=== PATIENT | female | born 1960 | race Asian ===

== ENCOUNTER → 2017-06-23 | Outpatient (CLI) | payer BC | END | disposition home or self-care (01) | LOC: US 07:23 | DX: K76.0 Fatty (change of) liver, not elsewhere classified (principal); N20.0 Calculus of kidney | CPT/HCPCS: 76700 ==

== ENCOUNTER → 2018-10-25 | Outpatient (CLI) | payer BC | END | disposition home or self-care (01) | LOC: MRI 12:00 | DX: S86.811A Strain of other muscle(s) and tendon(s) at lower leg level, right leg, initial encounter (principal); M94.261 Chondromalacia, right knee; M25.461 Effusion, right knee; X58.XXXA Exposure to other specified factors, initial encounter; Y93.89 Activity, other specified; Y92.89 Other specified places as the place of occurrence of the external cause; Y99.8 Other external cause status | CPT/HCPCS: 73721 ==

== ENCOUNTER → 2019-09-20 | Outpatient (CLI) | payer BC | END | disposition home or self-care (01) | LOC: RAD 16:13 | PROVIDERS: ATTEND Radiology Diagnostic Radiology | DX: I10 Essential (primary) hypertension (principal); E11.9 Type 2 diabetes mellitus without complications | CPT/HCPCS: 71046 ==

== ENCOUNTER → 2020-04-13 | Outpatient (CLI) | payer BC ==
[2020-04-13 08:01] LABS: BASOPHILS % 0.6 % (0.0-2.0); EOSINOPHILS % 2.2 % (0.0-5.0); HEMOGLOBIN. 13.1 g/dL (12.0-16.0); LYMPHOCYTES % 22.6 % (20.0-50.0); MEAN CORPUSCULAR HEMOGLOBIN 30.3 pg (28.0-32.0); MEAN PLATELET VOLUME 7.8 fl (7.4-10.4); MONOCYTES % 5.9 % (2.0-8.0); NEUTROPHILS % 68.7 % (40.0-76.0); PLATELET 254 x1000/uL (130-400); RED BLOOD CELL COUNT 4.33 mill/uL (4.2-5.4); RED CELL DISTRIBUTION WIDTH 13.1 % (11.6-14.6)
[2020-04-13 08:34] LABS: CHLORIDE 104 mEq/L (98-107)
[2020-04-13 08:40] LABS: LDL CHOLESTEROL 210 mg/dL (5-100)
[2020-04-13 08:41] LABS: HDL CHOLESTEROL 70 mg/dL (40-59)
[2020-04-13 08:42] LABS: T4 FREE 0.82 ng/dL (0.76-1.46)
== END | disposition home or self-care (01) ==
LOC: LAB 07:26
DX: E11.9 Type 2 diabetes mellitus without complications (principal); I10 Essential (primary) hypertension; E03.9 Hypothyroidism, unspecified; N28.9 Disorder of kidney and ureter, unspecified
CPT/HCPCS: 36415; 80053; 80061; 83036; 84439; 84443; 85025

== ENCOUNTER → 2020-05-21 | Outpatient (CLI) | payer BC ==
[2020-05-21 13:02] LABS: CLARITY URINE CLEAR (CLEAR); COLOR URINE YELLOW (YELLOW); KETONES URINE NEGATIVE (NEGATIVE); LEUKOCYTE ESTERASE URINE NEGATIVE (NEGATIVE); NITRITE URINE NEGATIVE (NEGATIVE); OCCULT BLOOD URINE NEGATIVE (NEGATIVE); PROTEIN URINE 2+ (NEGATIVE); SPECIFIC GRAVITY URINE 1.016 (1.005-1.030); UROBILINOGEN URINE 0.2 E.U./dL (0.2-1.0)
[2020-05-21 13:09] LABS: BASOPHILS % 0.8 % (0.0-2.0); EOSINOPHILS % 1.7 % (0.0-5.0); HEMATOCRIT. 40.1 % (36.0-48.0); HEMOGLOBIN. 13.4 g/dL (12.0-16.0); MEAN PLATELET VOLUME 8.5 fl (7.4-10.4); MONOCYTES % 5.1 % (2.0-8.0); NEUTROPHILS % 66.4 % (40.0-76.0); PLATELET 256 x1000/uL (130-400); RED BLOOD CELL COUNT 4.46 mill/uL (4.2-5.4); RED CELL DISTRIBUTION WIDTH 13.2 % (11.6-14.6)
[2020-05-21 13:20] LABS: CHLORIDE 108 mEq/L (98-107)
[2020-05-21 13:27] LABS: LDL CHOLESTEROL 162 mg/dL (5-100)
[2020-05-21 13:28] LABS: HDL CHOLESTEROL 71 mg/dL (40-59)
== END | disposition home or self-care (01) ==
LOC: LAB 12:29
PROVIDERS: ATTEND Family Medicine
DX: I10 Essential (primary) hypertension (principal); E11.9 Type 2 diabetes mellitus without complications
CPT/HCPCS: 36415; 80053; 80061; 81003; 82248; 83036; 85025

== ENCOUNTER → 2020-07-07 | Outpatient (CLI) | payer BC ==
[2020-07-07 09:56] LABS: CLARITY URINE CLEAR (CLEAR); COLOR URINE YELLOW (YELLOW); KETONES URINE NEGATIVE (NEGATIVE); LEUKOCYTE ESTERASE URINE TRACE (NEGATIVE); NITRITE URINE NEGATIVE (NEGATIVE); OCCULT BLOOD URINE NEGATIVE (NEGATIVE); PROTEIN URINE 2+ (NEGATIVE); SPECIFIC GRAVITY URINE 1.017 (1.005-1.030); UROBILINOGEN URINE 0.2 E.U./dL (0.2-1.0)
[2020-07-07 09:56] LABS: BASOPHILS % 0.7 % (0.0-2.0); EOSINOPHILS % 1.8 % (0.0-5.0); HEMATOCRIT. 40.3 % (36.0-48.0); HEMOGLOBIN. 13.3 g/dL (12.0-16.0); LYMPHOCYTES % 26.2 % (20.0-50.0); MEAN CORPUSCULAR HEMOGLOBIN 29.6 pg (28.0-32.0); MEAN CORPUSCULAR VOLUME 89.8 fL (81.0-99.0); MEAN PLATELET VOLUME 8.7 fl (7.4-10.4); MONOCYTES % 5.6 % (2.0-8.0); NEUTROPHILS % 65.7 % (40.0-76.0); PLATELET 243 x1000/uL (130-400); RED BLOOD CELL COUNT 4.49 mill/uL (4.2-5.4); RED CELL DISTRIBUTION WIDTH 12.5 % (11.6-14.6)
[2020-07-07 10:02] LABS: INR 0.9; PARTIAL THROMBOPLASTIN TIME 32.7 sec (23.4-31.0); PROTHROMBIN TIME 9.8 sec (9.6-11.0)
[2020-07-07 10:09] LABS: CHLORIDE 107 mEq/L (98-107)
[2020-07-07 10:16] LABS: HDL CHOLESTEROL 73 mg/dL (40-59); LDL CHOLESTEROL 175 mg/dL (5-100)
== END | disposition home or self-care (01) ==
LOC: LAB 08:04
PROVIDERS: ATTEND Family Medicine
DX: I10 Essential (primary) hypertension (principal); E11.69 Type 2 diabetes mellitus with other specified complication
CPT/HCPCS: 36415; 80053; 80061; 81003; 83036; 85025

== ENCOUNTER → 2020-08-29 | Outpatient (CLI) | payer BC ==
[2020-08-29 12:06] LABS: BASOPHILS % 1.2 % (0.0-2.0); EOSINOPHILS % 2.7 % (0.0-5.0); HEMATOCRIT. 41.7 % (36.0-48.0); HEMOGLOBIN. 13.7 g/dL (12.0-16.0); LYMPHOCYTES % 26.6 % (20.0-50.0); MEAN CORPUSCULAR HEMOGLOBIN 30.1 pg (28.0-32.0); MEAN CORPUSCULAR VOLUME 91.5 fL (81.0-99.0); MEAN PLATELET VOLUME 8.8 fl (7.4-10.4); MONOCYTES % 6.1 % (2.0-8.0); NEUTROPHILS % 63.4 % (40.0-76.0); PLATELET 232 x1000/uL (130-400); RED BLOOD CELL COUNT 4.56 mill/uL (4.2-5.4); RED CELL DISTRIBUTION WIDTH 12.9 % (11.6-14.6)
[2020-08-29 12:09] LABS: CLARITY URINE CLEAR (CLEAR); COLOR URINE YELLOW (YELLOW); KETONES URINE NEGATIVE (NEGATIVE); LEUKOCYTE ESTERASE URINE 1+ (NEGATIVE); NITRITE URINE NEGATIVE (NEGATIVE); OCCULT BLOOD URINE NEGATIVE (NEGATIVE); PROTEIN URINE 2+ (NEGATIVE); SPECIFIC GRAVITY URINE 1.019 (1.005-1.030); UROBILINOGEN URINE 0.2 E.U./dL (0.2-1.0)
[2020-08-29 12:13] LABS: CHLORIDE 105 mEq/L (98-107)
[2020-08-29 12:20] LABS: LDL CHOLESTEROL 167 mg/dL (5-100)
[2020-08-29 12:25] LABS: HDL CHOLESTEROL 64 mg/dL (40-59)
== END | disposition home or self-care (01) ==
LOC: LAB 11:27
PROVIDERS: ATTEND Family Medicine
DX: E11.9 Type 2 diabetes mellitus without complications (principal); E78.5 Hyperlipidemia, unspecified; R94.5 Abnormal results of liver function studies
CPT/HCPCS: 36415; 80053; 80061; 81003; 83036; 85025

== ENCOUNTER → 2020-09-02 | Outpatient (CLI) | payer BC | END | disposition home or self-care (01) | LOC: US 11:11 | PROVIDERS: ATTEND Family Medicine | DX: K76.0 Fatty (change of) liver, not elsewhere classified (principal); N18.30 Chronic kidney disease, stage 3 unspecified | CPT/HCPCS: 76700 ==

== ENCOUNTER → 2021-01-24 | Outpatient (CLI) | payer BC ==
[2021-01-24 08:32] LABS: CLARITY URINE CLEAR (CLEAR); COLOR URINE YELLOW (YELLOW); KETONES URINE NEGATIVE (NEGATIVE); LEUKOCYTE ESTERASE URINE NEGATIVE (NEGATIVE); NITRITE URINE NEGATIVE (NEGATIVE); OCCULT BLOOD URINE NEGATIVE (NEGATIVE); PROTEIN URINE NEGATIVE (NEGATIVE); UROBILINOGEN URINE 0.2 E.U./dL (0.2-1.0)
[2021-01-24 08:38] LABS: CHLORIDE 107 mEq/L (98-107)
[2021-01-24 08:41] LABS: BASOPHILS % 0.7 % (0.0-2.0); EOSINOPHILS % 3.2 % (0.0-5.0); HEMATOCRIT. 39.7 % (36.0-48.0); HEMOGLOBIN. 13.3 g/dL (12.0-16.0); LYMPHOCYTES % 21.7 % (20.0-50.0); MEAN CORPUSCULAR HEMOGLOBIN 30.6 pg (28.0-32.0); MEAN CORPUSCULAR VOLUME 91.5 fL (81.0-99.0); MEAN PLATELET VOLUME 8.4 fl (7.4-10.4); MONOCYTES % 5.5 % (2.0-8.0); NEUTROPHILS % 68.9 % (40.0-76.0); PLATELET 252 x1000/uL (130-400); RED BLOOD CELL COUNT 4.34 mill/uL (4.2-5.4); RED CELL DISTRIBUTION WIDTH 12.8 % (11.6-14.6)
[2021-01-24 08:45] LABS: LDL CHOLESTEROL 156 mg/dL (5-100)
[2021-01-24 08:46] LABS: HDL CHOLESTEROL 68 mg/dL (40-59)
== END | disposition home or self-care (01) ==
LOC: LAB 07:27
PROVIDERS: ATTEND Family Medicine
DX: E11.22 Type 2 diabetes mellitus with diabetic chronic kidney disease (principal); N18.30 Chronic kidney disease, stage 3 unspecified
CPT/HCPCS: 36415; 80053; 80061; 81003; 83036; 84550; 85025

== ENCOUNTER → 2021-07-05 | Outpatient (CLI) | payer BC ==
[2021-07-05 12:34] LABS: BASOPHILS % 1.1 % (0.0-2.0); EOSINOPHILS % 2.8 % (0.0-5.0); HEMATOCRIT. 43.3 % (36.0-48.0); HEMOGLOBIN. 14.4 g/dL (12.0-16.0); LYMPHOCYTES % 26.9 % (20.0-50.0); MEAN CORPUSCULAR HEMOGLOBIN 29.7 pg (28.0-32.0); MEAN CORPUSCULAR VOLUME 89.5 fL (81.0-99.0); MEAN PLATELET VOLUME 8.7 fl (7.4-10.4); MONOCYTES % 5.8 % (2.0-8.0); NEUTROPHILS % 63.4 % (40.0-76.0); PLATELET 247 x1000/uL (130-400); RED BLOOD CELL COUNT 4.84 mill/uL (4.2-5.4); RED CELL DISTRIBUTION WIDTH 12.7 % (11.6-14.6)
[2021-07-05 12:36] LABS: CLARITY URINE CLEAR (CLEAR); COLOR URINE YELLOW (YELLOW); KETONES URINE NEGATIVE (NEGATIVE); LEUKOCYTE ESTERASE URINE NEGATIVE (NEGATIVE); NITRITE URINE NEGATIVE (NEGATIVE); OCCULT BLOOD URINE NEGATIVE (NEGATIVE); PROTEIN URINE 3+ (NEGATIVE); SPECIFIC GRAVITY URINE 1.013 (1.005-1.030); UROBILINOGEN URINE 0.2 E.U./dL (0.2-1.0)
[2021-07-05 12:38] LABS: CHLORIDE 103 mEq/L (98-107)
[2021-07-05 12:45] LABS: LDL CHOLESTEROL 204 mg/dL (5-100)
[2021-07-05 12:47] LABS: HDL CHOLESTEROL 73 mg/dL (40-59)
== END | disposition home or self-care (01) ==
LOC: ER 10:46
DX: E11.22 Type 2 diabetes mellitus with diabetic chronic kidney disease (principal); N18.30 Chronic kidney disease, stage 3 unspecified; E78.5 Hyperlipidemia, unspecified
CPT/HCPCS: 36415; 80053; 80061; 81003; 83036; 85025

== ENCOUNTER → 2022-02-08 | Outpatient (CLI) | payer BC ==
[2022-02-08 20:27] LABS: BASOPHILS % 0.6 % (0.0-2.0); EOSINOPHILS % 2.7 % (0.0-5.0); HEMATOCRIT. 38.7 % (36.0-48.0); HEMOGLOBIN. 13.1 g/dL (12.0-16.0); LYMPHOCYTES % 24.7 % (20.0-50.0); MONOCYTES % 7.3 % (2.0-8.0); NEUTROPHILS % 64.7 % (40.0-76.0); PLATELET 236 x1000/uL (130-400); RED BLOOD CELL COUNT 4.35 mill/uL (4.2-5.4); RED CELL DISTRIBUTION WIDTH 12.2 % (11.6-14.6)
[2022-02-08 20:39] LABS: CHLORIDE 106 mEq/L (98-107)
[2022-02-08 20:47] LABS: HDL CHOLESTEROL 59 mg/dL (40-59); LDL CHOLESTEROL 160 mg/dL (5-100)
[2022-02-08 21:01] LABS: CLARITY URINE CLEAR (CLEAR); COLOR URINE YELLOW (YELLOW); KETONES URINE NEGATIVE (NEGATIVE); LEUKOCYTE ESTERASE URINE NEGATIVE (NEGATIVE); NITRITE URINE NEGATIVE (NEGATIVE); OCCULT BLOOD URINE NEGATIVE (NEGATIVE); PH URINE 5.5 (4.5-8.0); PROTEIN URINE 3+ (NEGATIVE); SPECIFIC GRAVITY URINE 1.017 (1.005-1.030); UROBILINOGEN URINE 0.2 E.U./dL (0.2-1.0)
== END | disposition home or self-care (01) ==
LOC: LAB 14:39
PROVIDERS: ATTEND Family Medicine
DX: I12.9 Hypertensive chronic kidney disease with stage 1 through stage 4 chronic kidney disease, or unspecified chronic kidney disease (principal); N18.30 Chronic kidney disease, stage 3 unspecified
CPT/HCPCS: 36415; 80053; 80061; 81003; 82105; 82378; 85025

== ENCOUNTER → 2022-09-01 | Outpatient (CLI) | payer BC ==
[2022-09-01 16:58] LABS: CLARITY URINE CLEAR (CLEAR); COLOR URINE YELLOW (YELLOW); KETONES URINE NEGATIVE (NEGATIVE); LEUKOCYTE ESTERASE URINE TRACE (NEGATIVE); NITRITE URINE NEGATIVE (NEGATIVE); OCCULT BLOOD URINE NEGATIVE (NEGATIVE); PH URINE 5.5 (4.5-8.0); PROTEIN URINE 2+ (NEGATIVE); SPECIFIC GRAVITY URINE 1.017 (1.005-1.030); UROBILINOGEN URINE 0.2 E.U./dL (0.2-1.0)
[2022-09-01 17:19] LABS: BASOPHILS % 0.5 % (0.0-2.0); EOSINOPHILS % 1.3 % (0.0-5.0); HEMATOCRIT. 39.1 % (36.0-48.0); HEMOGLOBIN. 12.9 g/dL (12.0-16.0); LYMPHOCYTES % 23.2 % (20.0-50.0); MEAN CORPUSCULAR HEMOGLOBIN 30.2 pg (28.0-32.0); MEAN CORPUSCULAR VOLUME 91.5 fL (81.0-99.0); MONOCYTES % 5.3 % (2.0-8.0); NEUTROPHILS % 69.7 % (40.0-76.0); PLATELET 254 x1000/uL (130-400); RED BLOOD CELL COUNT 4.27 mill/uL (4.2-5.4); RED CELL DISTRIBUTION WIDTH 13.3 % (11.6-14.6)
[2022-09-01 17:24] LABS: CHLORIDE 105 mEq/L (98-107)
[2022-09-01 17:48] LABS: HEPATITIS B SURFACE ANTIGEN NEGATIVE
[2022-09-01 17:52] LABS: HDL CHOLESTEROL 66 mg/dL (40-59); LDL CHOLESTEROL 188 mg/dL (5-100); T4 FREE 0.87 ng/dL (0.76-1.46)
== END | disposition home or self-care (01) ==
LOC: LAB 11:29
PROVIDERS: ATTEND Family Medicine
DX: Z00.00 Encounter for general adult medical examination without abnormal findings (principal); R76.11 Nonspecific reaction to tuberculin skin test without active tuberculosis; I10 Essential (primary) hypertension; K76.0 Fatty (change of) liver, not elsewhere classified; R80.9 Proteinuria, unspecified; Z87.442 Personal history of urinary calculi
CPT/HCPCS: 36415; 71045; 80053; 80061; 81003; 83036; 84439; 84443; 85025; 86803; 87340

== ENCOUNTER → 2022-09-03 | Outpatient (CLI) | payer BC | END | disposition home or self-care (01) | LOC: US 09:10 | PROVIDERS: ATTEND Family Medicine | DX: D25.9 Leiomyoma of uterus, unspecified (principal); K76.0 Fatty (change of) liver, not elsewhere classified; R80.9 Proteinuria, unspecified | CPT/HCPCS: 76700; 76856 ==

== ENCOUNTER → 2023-02-08 | Outpatient (CLI) | payer BC ==
[2023-02-08 10:06] LABS: BASOPHILS % 0.7 % (0.0-2.0); EOSINOPHILS % 1.8 % (0.0-5.0); HEMATOCRIT. 41.1 % (36.0-48.0); HEMOGLOBIN. 13.5 g/dL (12.0-16.0); LYMPHOCYTES % 27.8 % (20.0-50.0); MEAN CORPUSCULAR HEMOGLOBIN 29.7 pg (28.0-32.0); MEAN CORPUSCULAR HGB CONC 32.8 g/dL (31.0-37.0); MEAN CORPUSCULAR VOLUME 90.5 fL (81.0-99.0); MEAN PLATELET VOLUME 8.2 fl (7.4-10.4); MONOCYTES % 5.2 % (2.0-8.0); NEUTROPHILS % 64.5 % (40.0-76.0); PLATELET 257 x1000/uL (130-400); RED BLOOD CELL COUNT 4.54 mill/uL (4.2-5.4); RED CELL DISTRIBUTION WIDTH 13.1 % (11.6-14.6); WHITE BLOOD COUNT 5.3 x1000/uL (4.5-11.0)
[2023-02-08 10:07] LABS: CLARITY URINE CLEAR (CLEAR); COLOR URINE YELLOW (YELLOW); GLUCOSE URINE NEGATIVE (NEGATIVE); KETONES URINE NEGATIVE (NEGATIVE); LEUKOCYTE ESTERASE URINE NEGATIVE (NEGATIVE); NITRITE URINE NEGATIVE (NEGATIVE); OCCULT BLOOD URINE NEGATIVE (NEGATIVE); PROTEIN URINE 4+ (NEGATIVE); SPECIFIC GRAVITY URINE 1.016 (1.005-1.030); UROBILINOGEN URINE 0.2 E.U./dL (0.2-1.0)
[2023-02-08 10:10] LABS: BACTERIA URINE NONE SEEN; RBC URINE NONE SEEN /hpf (0-2); SQUAMOUS EPITHELIAL CELL URINE NONE SEEN /lpf (RARE/1+); WBC URINE NONE SEEN /hpf (0-2); YEAST URINE NONE SEEN
[2023-02-08 10:18] LABS: CHLORIDE 108 mEq/L (98-107); INDEX HEMOLYSI 1 (1-3); INDEX ICTERIC 1 (1-4); INDEX LIPEMIC 1 (1-3); SODIUM 136 mEq/L (136-145)
[2023-02-08 10:25] LABS: ALANINE AMINOTRANSFERASE 17 IU/L (13-61); ALBUMIN 3.5 g/dL (3.4-5.0); ASPARTATE AMINOTRANSFERASE 14 IU/L (15-37); BILIRUBIN TOTAL 0.4 mg/dL (0.1-1.0); CALCIUM 8.7 mg/dL (8.5-10.1); CARBON DIOXIDE 26 mEq/L (21-32); CHOLESTEROL 289 mg/dL (<200); GLUCOSE 126 mg/dL (70-105); HDL CHOLESTEROL 71 mg/dL (40-59); LDL CHOLESTEROL 198 mg/dL (5-100); PROTEIN TOTAL 7.2 g/dL (6.0-8.3); TRIGLYCERIDE 208 mg/dL (0-150); UREA NITROGEN BLOOD 30 mg/dL (7-21); URIC ACID 7.7 mg/dL (2.6-7.2)
[2023-02-08 10:27] LABS: FINE GRANULAR CASTS URINE 0-5 /lpf; HYALINE CASTS URINE 0-5 /lpf
== END | disposition home or self-care (01) ==
LOC: LAB 08:34
PROVIDERS: ATTEND Family Medicine
DX: E11.22 Type 2 diabetes mellitus with diabetic chronic kidney disease (principal); N18.30 Chronic kidney disease, stage 3 unspecified; M10.9 Gout, unspecified
CPT/HCPCS: 36415; 80053; 80061; 81003; 83036; 84550; 85025

== ENCOUNTER → 2024-07-18 | Outpatient (CLI) | payer BC | END | disposition home or self-care (01) | LOC: LAB 10:23 | PROVIDERS: ATTEND Family Medicine | DX: S83.281A Other tear of lateral meniscus, current injury, right knee, initial encounter (principal); M17.11 Unilateral primary osteoarthritis, right knee; M22.41 Chondromalacia patellae, right knee; M25.761 Osteophyte, right knee; M25.461 Effusion, right knee; I10 Essential (primary) hypertension; M23.006 Cystic meniscus, unspecified meniscus, right knee; M10.9 Gout, unspecified; X58.XXXA Exposure to other specified factors, initial encounter; Y93.89 Activity, other specified; Y92.89 Other specified places as the place of occurrence of the external cause; Y99.8 Other external cause status | CPT/HCPCS: 73721 ==

== ENCOUNTER → 2024-07-19 | Outpatient (CLI) | payer BC ==
[2024-07-19 10:55] LABS: BASOPHILS % 0.2 % (0.0-2.0); EOSINOPHILS % 1.9 % (0.0-5.0); HEMATOCRIT. 33.8 % (36.0-48.0); LYMPHOCYTES % 19.8 % (20.0-50.0); MEAN CORPUSCULAR HEMOGLOBIN 30.1 pg (28.0-32.0); MEAN CORPUSCULAR HGB CONC 32.4 g/dL (31.0-37.0); MEAN CORPUSCULAR VOLUME 92.9 fL (81.0-99.0); MEAN PLATELET VOLUME 9.2 fl (7.4-10.4); MONOCYTES % 5.9 % (2.0-8.0); NEUTROPHILS % 72.2 % (40.0-76.0); PLATELET 243 x1000/uL (130-400); RED BLOOD CELL COUNT 3.64 mill/uL (4.2-5.4); WHITE BLOOD COUNT 6.2 x1000/uL (4.5-11.0)
[2024-07-19 11:02] LABS: CHLORIDE 112 mEq/L (98-107); POTASSIUM 4.9 mEq/L (3.5-5.1); SODIUM 145 mEq/L (136-145)
[2024-07-19 11:03] LABS: CALCIUM 9.3 mg/dL (8.7-10.4); CARBON DIOXIDE 26 mEq/L (21-32)
[2024-07-19 11:07] LABS: CREATININE 3.5 mg/dL (0.6-1.0); URIC ACID 8.5 mg/dL (3.1-7.8)
[2024-07-19 11:08] LABS: GLUCOSE 109 mg/dL (70-105); UREA NITROGEN BLOOD 41 mg/dL (9-23)
[2024-07-19 11:10] LABS: ALANINE AMINOTRANSFERASE < 7 IU/L (10-49); ALBUMIN 4.1 g/dL (3.2-4.8); ASPARTATE AMINOTRANSFERASE 13 IU/L (<34); BILIRUBIN TOTAL 0.5 mg/dL (0.1-1.0); PROTEIN TOTAL 6.5 g/dL (6.0-8.3)
[2024-07-19 12:02] LABS: ERYTHROCYTE SEDIMENTATION RATE 35 mm/hr (0-30)
== END | disposition home or self-care (01) ==
LOC: LAB 10:16
PROVIDERS: ATTEND Family Medicine
DX: I10 Essential (primary) hypertension (principal); M10.9 Gout, unspecified
CPT/HCPCS: 36415; 80053; 83036; 84550; 85025; 85651

== ENCOUNTER 2025-05-10 16:00 | Inpatient (IN) | payer BC, MEDICARE ==
[~2025-05-10] VITALS: Ht 193 cm; Wt 69.9 kg
[2025-05-10 16:10] VITALS: O2SAT 100
[2025-05-10 16:52] LABS: BASOPHILS % 0.6 % (0.0-2.0); EOSINOPHILS % 1.9 % (0.0-5.0); HEMATOCRIT. 28.0 % (36.0-48.0); HEMOGLOBIN. 8.9 g/dL (12.0-16.0); LYMPHOCYTES % 22.4 % (20.0-50.0); MEAN PLATELET VOLUME 9.0 fl (7.4-10.4); MONOCYTES % 5.2 % (2.0-8.0); NEUTROPHILS % 69.9 % (40.0-76.0); PLATELET 221 x1000/uL (130-400); RED BLOOD CELL COUNT 2.96 mill/uL (4.2-5.4); RED CELL DISTRIBUTION WIDTH 13.7 % (11.6-14.6)
[2025-05-10 16:55] LABS: UREA NITROGEN BLOOD 45.0 mg/dL (9-23)
[2025-05-10 17:10] LABS: CREATININE 5.4 mg/dL (0.6-1.0)
[2025-05-10 18:32] LABS: TROPONIN I HIGH SENSITIVITY 44 ng/L (3.0-34)
[2025-05-10] MEDS: CALCIUM CHLORIDE 1GM/10ML SYR IV ONE (19:03)
[2025-05-10] MEDS: DEXTROSE 50% WATER 50ML SYRINGE IV ONE (19:11)
[2025-05-10] MEDS: SODIUM CHLORIDE 0.9% 1,000 ML IV ONE (19:13)
[2025-05-10] MEDS: INSULIN REGULAR (HUMULIN R) 1000UNITS/10ML VIAL IV ONE (19:13)
[2025-05-10] MEDS ORDERED: LOSA100T33 MT (20:18)
[2025-05-10] MEDS ORDERED: HYDR25TA78 MT (20:18)
[2025-05-10] MEDS ORDERED: ACETAMINOPHEN 325MG TABLET PO PRN ×2 (20:45)
[2025-05-10] MEDS ORDERED: ONDANSETRON HCL 4MG/2ML INJ IV PRN (20:45)
[2025-05-10] MEDS ORDERED: DOCUSATE SODIUM 100MG CAPSULE PO PRN (20:45)
[2025-05-10] MEDS ORDERED: IPRATROPIUM/ALBUTEROL 0.5-3(2.5)MG/3ML NEB HHN PRN (20:45)
[2025-05-10] MEDS ORDERED: GUAIFENESIN 200MG/10ML SUGAR FREE UDC PO PRN (20:45)
[2025-05-10] MEDS ORDERED: MAGNESIUM/ALUMINUM HYDROXIDE/SIMETHICONE 30ML UDC PO PRN (20:45)
[2025-05-10 21:00] VITALS: BP 133/64; PULSE 62; RESP 19; TEMP 36.5292
[2025-05-10 21:20] VITALS: BP 133/49; PULSE 65; RESP 18; TEMP 36.1; O2SAT 100
[2025-05-10 21:32] LABS: TROPONIN I HIGH SENSITIVITY 50 ng/L (3.0-34)
[2025-05-10] MEDS: HYDRALAZINE HCL 50MG TABLET PO SCH (22:46)
[2025-05-10] MEDS: SODIUM ZIRCONIUM CYCLOSILICATE 10GM/PACKET PO SCH (22:46)
[2025-05-11] VITALS: BP 126/50; PULSE 71; RESP 18; TEMP 36.2; O2SAT 97
[2025-05-11] MEDS ORDERED: DEXTROSE 50% WATER 50ML SYRINGE IV PRN (02:30)
[2025-05-11 04:00] VITALS: BP 130/57; PULSE 70; RESP 18; TEMP 36.2; O2SAT 98
[2025-05-11] MEDS: BLOOD SUGAR DIAGNOSTIC STRIP TEST SCH (07:10)
[2025-05-11] MEDS: INSULIN LISPRO 100 UNITS/ML SUBCUT SCH (07:40)
[2025-05-11 08:00] VITALS: BP 143/51; PULSE 66; RESP 20; TEMP 36.6; O2SAT 98
[2025-05-11 08:00] LABS: BASOPHILS % 0.4 % (0.0-2.0); EOSINOPHILS % 0.8 % (0.0-5.0); HEMATOCRIT. 24.4 % (36.0-48.0); HEMOGLOBIN. 8.1 g/dL (12.0-16.0); LYMPHOCYTES % 24.2 % (20.0-50.0); MEAN PLATELET VOLUME 9.6 fl (7.4-10.4); MONOCYTES % 5.3 % (2.0-8.0); NEUTROPHILS % 69.3 % (40.0-76.0); PLATELET 188 x1000/uL (130-400); RED BLOOD CELL COUNT 2.65 mill/uL (4.2-5.4); RED CELL DISTRIBUTION WIDTH 13.0 % (11.6-14.6)
[2025-05-11 08:15] LABS: UREA NITROGEN BLOOD 64 mg/dL (9-23)
[2025-05-11 08:17] LABS: ASPARTATE AMINOTRANSFERASE 12 IU/L (<34); BILIRUBIN DIRECT 0.1 mg/dL (<=3.0); PHOSPHORUS 6.8 mg/dL (2.5-4.9)
[2025-05-11 08:18] LABS: TRIGLYCERIDE 114 mg/dL (0-150)
[2025-05-11 08:18] LABS: BILIRUBIN TOTAL 0.6 mg/dL (0.1-1.0); PROTEIN TOTAL 6.2 g/dL (6.0-8.3)
[2025-05-11 08:19] LABS: LDL CHOLESTEROL 147 mg/dL (5-100)
[2025-05-11 08:20] LABS: CREATININE 5.7 mg/dL (0.6-1.0)
[2025-05-11 08:32] LABS: VITAMIN B12 SERUM 337 pg/mL (211-911)
[2025-05-11 08:33] LABS: FOLIC ACID (FOLATE) SERUM 17.66 ng/mL (>5.38)
[2025-05-11 08:52] LABS: HEPATITIS A AB IGM NEGATIVE (Negative); HEPATITIS B CORE AB IGM NEGATIVE (Negative)
[2025-05-11 08:53] LABS: HEPATITIS C AB NON REACTIVE (Neg) (Negative)
[2025-05-11] MEDS: EMPAGLIFLOZIN 10MG TABLET PO SCH (09:17)
[2025-05-11] MEDS: FOLIC ACID/VITAMIN B COMP W-C TABLET PO SCH (09:17)
[2025-05-11] MEDS: ALLOPURINOL 100 MG TABLET PO SCH (09:17)
[2025-05-11] MEDS: LABETALOL HCL 200MG TABLET PO SCH (09:17)
[2025-05-11] MEDS: SODIUM BICARBONATE 650MG TABLET PO SCH (11:30)
[2025-05-11 12:00] VITALS: BP 135/52; PULSE 68; RESP 18; TEMP 36.8; O2SAT 99
[2025-05-11] MEDS: CALCIUM ACETATE 667MG CAPSULE PO SCH (13:47)
[2025-05-11] MEDS: EPOETIN ALFA-EPBX 4,000 UNITS/ML VIAL SUBCUT NR (13:50)
[2025-05-11 16:00] VITALS: BP 129/65; PULSE 69; RESP 18; TEMP 36.7; O2SAT 99
[2025-05-11] MEDS ORDERED: LABE200T9 PO (16:56)
[2025-05-11] MEDS ORDERED: SODI650T PO (16:56)
[2025-05-11] MEDS ORDERED: CALC667C PO (16:56)
[2025-05-11] MEDS ORDERED: HYDR50TA39 PO (16:56)
[2025-05-11 17:56] VITALS: BP 129/65; PULSE 69; RESP 18; TEMP 98.1
[2025-05-11] MEDS ORDERED: ATORVASTATIN CALCIUM 20MG TABLET PO SCH ×2 (21:00)
[2025-05-13 09:08] LABS: COMPLEMENT C4 29 mg/dL (12-38)
[2025-05-14 15:07] LABS: ATYPICAL P-ANCA <1:20 titer (Neg:<1:20); CYTOPLASMIC C-ANCA <1:20 titer (Neg:<1:20); PERINUCLEAR P-ANCA <1:20 titer (Neg:<1:20)
[2025-05-15 15:11] LABS: A/G RATIO 1.2 (0.7-1.7); BETA GLOBULIN 0.8 g/dL (0.7-1.3); GAMMA GLOBULINS 1.0 g/dL (0.4-1.8); GLOBULIN TOTAL 2.7 g/dL (2.2-3.9); M-SPIKE Not Observed g/dL (Not Observed); TOTAL PROTEIN SERUM 5.9 g/dL (6.0-8.5)
[2025-05-17 19:06] LABS: ANA IFA Negative (.)
== END 2025-05-11 18:45 | disposition home or self-care (01) | DRG 683 ==
LOC: ER 16:00 → EDBEDREQSVC 18:39 → EDBEDREQTM 18:39 → EDBEDREQ 18:39 → ENRESERV 19:21 → 8WST 21:25
PROVIDERS: ADMIT Hospitalist; ATTEND Hospitalist
DX: N17.9 Acute kidney failure, unspecified (principal); E87.20 Acidosis, unspecified; I13.11 Hypertensive heart and chronic kidney disease without heart failure, with stage 5 chronic kidney disease, or end stage renal disease; E83.39 Other disorders of phosphorus metabolism; E11.22 Type 2 diabetes mellitus with diabetic chronic kidney disease; D64.9 Anemia, unspecified; E87.5 Hyperkalemia; E78.5 Hyperlipidemia, unspecified; N18.5 Chronic kidney disease, stage 5; E87.6 Hypokalemia; R79.89 Other specified abnormal findings of blood chemistry; M10.9 Gout, unspecified; N20.0 Calculus of kidney; K59.00 Constipation, unspecified; Z79.84 Long term (current) use of oral hypoglycemic drugs; Z79.899 Other long term (current) drug therapy; Z81.8 Family history of other mental and behavioral disorders; Z87.442 Personal history of urinary calculi; Z88.0 Allergy status to penicillin
CPT/HCPCS: 36415; 71045; 76770; 80048; 80061; 80076; 82043; 82550; 82570; 82607; 82728; 82746; 82784; 82962; 83520; 83540; 83550; 83735; 83880; 84100; 84155; 84165; 84484; 84550; 85025; 86160; 86256; 86334; 86431; 86705; 86706; 86709; 87340; 93005; 96361; 96374; 96375; 99291; J0885; J1815; J3490; J7030

== ENCOUNTER → 2025-05-10 | Outpatient (CLI) | payer BC ==
[~2025-05-10] MED LIST: CALC667C PO; HYDR25TA78 MT; HYDR50TA39 PO; LABE200T9 PO; LOSA100T33 MT; SODI650T PO
[2025-05-10 11:46] LABS: BASOPHILS % 0.8 % (0.0-2.0); EOSINOPHILS % 1.8 % (0.0-5.0); HEMATOCRIT. 27.7 % (36.0-48.0); HEMOGLOBIN. 9.1 g/dL (12.0-16.0); LYMPHOCYTES % 22.0 % (20.0-50.0); MEAN PLATELET VOLUME 8.9 fl (7.4-10.4); MONOCYTES % 5.0 % (2.0-8.0); NEUTROPHILS % 70.4 % (40.0-76.0); PLATELET 212 x1000/uL (130-400); RED BLOOD CELL COUNT 2.98 mill/uL (4.2-5.4); RED CELL DISTRIBUTION WIDTH 13.1 % (11.6-14.6)
[2025-05-10 12:02] LABS: TRIGLYCERIDE 167 mg/dL (0-150); UREA NITROGEN BLOOD 60 mg/dL (9-23)
[2025-05-10 12:03] LABS: LDL CHOLESTEROL 152 mg/dL (5-100)
[2025-05-10 12:04] LABS: ASPARTATE AMINOTRANSFERASE 13 IU/L (<34); BILIRUBIN TOTAL 0.5 mg/dL (0.1-1.0); PROTEIN TOTAL 6.7 g/dL (6.0-8.3)
[2025-05-10 14:05] LABS: CREATININE 5.3 mg/dL (0.6-1.0)
[2025-05-11 08:08] LABS: *CREATININE RANDOM URINE 75.3 mg/dL (Not Estab.); MICROALBUMIN RANDOM URINE 1264.3 ug/mL (Not Estab.); MICROALBUMIN/CREATININE RATIO 1679.0 mg/g creat (0-29)
== END | disposition home or self-care (01) ==
LOC: LAB 11:03
PROVIDERS: ATTEND Family Medicine
DX: E79.0 Hyperuricemia without signs of inflammatory arthritis and tophaceous disease (principal); N17.9 Acute kidney failure, unspecified
CPT/HCPCS: 36415; 80053; 80061; 82043; 82570; 83036; 84550; 85025

== ENCOUNTER → 2025-05-15 | Outpatient (CLI) | payer BC ==
[~2025-05-15] MED LIST changes: -HYDR25TA78 MT; -LOSA100T33 MT
[2025-05-15 08:59] LABS: BASOPHILS % 0.8 % (0.0-2.0); EOSINOPHILS % 1.5 % (0.0-5.0); HEMATOCRIT. 24.9 % (36.0-48.0); HEMOGLOBIN. 8.1 g/dL (12.0-16.0); LYMPHOCYTES % 21.3 % (20.0-50.0); MEAN PLATELET VOLUME 8.6 fl (7.4-10.4); MONOCYTES % 6.6 % (2.0-8.0); NEUTROPHILS % 69.8 % (40.0-76.0); PLATELET 205 x1000/uL (130-400); RED BLOOD CELL COUNT 2.66 mill/uL (4.2-5.4); RED CELL DISTRIBUTION WIDTH 13.6 % (11.6-14.6)
[2025-05-15 09:16] LABS: UREA NITROGEN BLOOD 67 mg/dL (9-23)
[2025-05-15 09:18] LABS: ASPARTATE AMINOTRANSFERASE 14 IU/L (<34); BILIRUBIN TOTAL 0.3 mg/dL (0.1-1.0); PROTEIN TOTAL 6.4 g/dL (6.0-8.3)
[2025-05-15 09:21] LABS: INR 0.9
[2025-05-15 09:22] LABS: CLARITY URINE CLEAR (CLEAR); COLOR URINE YELLOW (YELLOW); GLUCOSE URINE 1+ (NEGATIVE); KETONES URINE NEGATIVE (NEGATIVE); LEUKOCYTE ESTERASE URINE TRACE (NEGATIVE); NITRITE URINE NEGATIVE (NEGATIVE); OCCULT BLOOD URINE NEGATIVE (NEGATIVE); PH URINE 6.5 (4.5-8.0); PROTEIN URINE 3+ (NEGATIVE); SPECIFIC GRAVITY URINE 1.014 (1.005-1.030); UROBILINOGEN URINE 0.2 E.U./dL (0.2-1.0)
[2025-05-15 09:39] LABS: CREATININE 6.5 mg/dL (0.6-1.0)
[2025-05-15 09:39] LABS: SQUAMOUS EPITHELIAL CELL URINE FEW /lpf (RARE/1+)
[2025-05-15 09:40] LABS: RBC URINE 0-2 /hpf (0-2)
[2025-05-15 09:41] LABS: BACTERIA URINE NONE SEEN
== END | disposition home or self-care (01) ==
LOC: LAB 07:50
PROVIDERS: ATTEND Specialist
DX: Z01.818 Encounter for other preprocedural examination (principal)
CPT/HCPCS: 36415; 80053; 81003; 85025; 93005

== ENCOUNTER → 2025-05-20 | Day surgery (SDC) | payer BC ==
[~2025-05-20] VITALS: Ht 160 cm; Wt 68.5 kg
[~2025-05-20] MED LIST changes: +ACETAMINOPHEN 1000MG/100ML 100 ML IV ONE; +BUPIVACAINE HCL/PF 0.5% (5MG/ML) 10ML ONE; +CEFAZOLIN SODIUM 1000MG/VIAL ONE; +EPHEDRINE SULFATE 50MG/ML VIAL ONE; +FAMOTIDINE 20MG/2ML VIAL IV ONE; +FENTANYL CITRATE/PF 50MCG/ML 2ML VIAL ONE; +HYDROMORPHONE HCL/PF 1MG/ML INJ IV PRN; +LIDOCAINE HCL 1% 20ML VIAL ONE; +METOCLOPRAMIDE HCL 10MG/2ML VIAL ONE; +MIDAZOLAM HCL 2 MG/2 ML VIAL ONE; +ONDANSETRON HCL 4MG/2ML INJ ONE; +PHENYLEPHRINE HCL 10MG/ML 1ML IV ONE; +POLYMYXIN B SULFATE 500000 UNITS/VIAL ONE; +PROPOFOL 200MG/20ML VIAL IV ONE; +ROCURONIUM BROMIDE 10MG/ML VIAL 5ML IV ONE; +SKIN ADHESIVE 0.7 GM EA TOP ONE
[2025-05-20 07:30] LABS: UREA NITROGEN BLOOD 51.0 mg/dL (9-23)
[2025-05-20 07:58] LABS: CREATININE 5.8 mg/dL (0.6-1.0)
[2025-05-20] MEDS: ONDANSETRON HCL 4MG/2ML INJ IV PRN (10:03)
== END | disposition home or self-care (01) ==
LOC: OR 06:20
PROVIDERS: ATTEND Specialist
DX: I12.0 Hypertensive chronic kidney disease with stage 5 chronic kidney disease or end stage renal disease (principal); N18.6 End stage renal disease; E11.22 Type 2 diabetes mellitus with diabetic chronic kidney disease; E78.5 Hyperlipidemia, unspecified; M10.9 Gout, unspecified; Z99.2 Dependence on renal dialysis; Z79.899 Other long term (current) drug therapy; Z98.890 Other specified postprocedural states; Z82.49 Family history of ischemic heart disease and other diseases of the circulatory system; Z83.3 Family history of diabetes mellitus
CPT/HCPCS: 49324; 36415; 80048; 82962; J3010; J0665; J0690; J3490 ×4; J1308; J2003; J2765; J2250; J2405; J2371; J2704; C1750; J0131